=== PATIENT | male | born 1950 | race Caucasian/White ===

== ENCOUNTER 2017-05-03 07:37 | Inpatient (IN) | payer MEDICARE, OTHER ==
[~2017-05-03] VITALS: Ht 165.1 cm; Wt 89.5 kg
[~2017-05-03 07:37] MED LIST: ASPI81 PO; ATOR10TA84 PO; CHOL50004 PO; DICL2100G TP; DICL50TA9 PO
[2017-05-03] MEDS ORDERED: RINGERS SOLUTION,LACTATED 1,000 ML IV ONE ×2 (08:02→08:30)
[2017-05-03] MEDS ORDERED: TRANEXAMIC ACID 1,000 MG in DEXTROSE 5%-WATER 50 ML IV ONE (08:15)
[2017-05-03] MEDS ORDERED: HYDROmorphone 2 MG/ML SYRINGE IVP PRN (08:15)
[2017-05-03] MEDS ORDERED: MEPERIDINE-PF 25 MG/ML SYRINGE IVP PRN (08:15)
[2017-05-03] MEDS ORDERED: FentaNYL CITRATE-PF 100 MCG/2 ML VIAL IVP PRN (08:15)
[2017-05-03] MEDS ORDERED: BUPIVACAINE LIPOSOME/PF 1.3%-13.3MG/ML SUSPENSION 20 ML VIAL INJ ONE (08:15)
[2017-05-03] MEDS ORDERED: ONDANSETRON HCL 4 MG/2 ML VIAL IVP PRN ×2 (08:15→09:30)
[2017-05-03] MEDS ORDERED: PROMETHAZINE HCL 25 MG/ML VIAL IM PRN (08:15)
[2017-05-03] MEDS ORDERED: ZOLPIDEM TARTRATE 5 MG TABLET PO PRN (08:15)
[2017-05-03] MEDS ORDERED: ACETAMINOPHEN 1000 MG/ISO-OSM 100 ML IV ONE (08:45)
[2017-05-03] MEDS ORDERED: CELECOXIB 200 MG CAPSULE ONE (08:46)
[2017-05-03] MEDS: ACETAMINOPHEN 1000 MG/ISO-OSM 100 ML IV SCH ×3 (08:56→21:43)
[2017-05-03] MEDS ORDERED: CELECOXIB 200 MG CAPSULE PO ONE (09:00)
[2017-05-03] MEDS ORDERED: SODIUM CHLORIDE 0.9% 1,000 ML IV SCH (09:24)
[2017-05-03] MEDS ORDERED: SODIUM CL IRRIG SOLN BAG 3,000 ML IRRIG ONE (09:26)
[2017-05-03] MEDS ORDERED: 0.9% SODIUM CHLORIDE 10 ML SYRINGE IVP PRN (09:30)
[2017-05-03] MEDS ORDERED: DiphenhydrAMINE HCL 50 MG/ML VIAL IVP PRN (09:30)
[2017-05-03] MEDS ORDERED: BISACODYL 10 MG RECTAL RECTAL SUPPOSITORY PR PRN (09:30)
[2017-05-03] MEDS ORDERED: BENZOCAINE/MENTHOL LOZENGE [8 LOZENGES/PACKET] PO PRN (09:30)
[2017-05-03] MEDS ORDERED: BUPIVACAINE HCL/PF 0.5% 30 ML VIAL ONE ×2 (09:33→09:40)
[2017-05-03] MEDS ORDERED: SODIUM CHLORIDE 0.9% 50 ML ONE (09:40)
[2017-05-03 13:00] VITALS: BP 135/78
[2017-05-03 16:00] VITALS: BP 136/85
[2017-05-03] MEDS: CeFAZolin 1 GM/DEXTROSE 50 ML IV SCH (16:43)
[2017-05-03] MEDS: HYDROmorphone 2 MG/ML SYRINGE IVP PRN (18:55)
[2017-05-03] MEDS ORDERED: OXYGEN THERAPY IH SCH (20:00)
[2017-05-03 20:44] VITALS: BP 123/72
[2017-05-03] MEDS: DOCUSATE SODIUM 100 MG CAPSULE PO SCH (21:42)
[2017-05-03] MEDS: CELECOXIB 200 MG CAPSULE PO SCH (21:43)
[2017-05-04] VITALS (7 sets, daily range): BP systolic 110–129; BP diastolic 60–77
[2017-05-04] MEDS: CeFAZolin 1 GM/DEXTROSE 50 ML IV SCH (00:17)
[2017-05-04] MEDS: ACETAMINOPHEN 1000 MG/ISO-OSM 100 ML IV SCH ×2 (02:48→09:06)
[2017-05-04 06:05] LABS: BASOPHILS % (AUTO) 0.2 % (0.0-2.0); EOSINOPHILS % (AUTO) 0.8 % (1.0-6.0); HEMATOCRIT 36.8 % (41-53); HEMOGLOBIN 12.6 g/dL (13.5-17.5); LYMPHOCYTES # (AUTO) 1.8 K/uL (1.0-4.8); LYMPHOCYTES % (AUTO) 16.5 % (22.0-44.0); MEAN CORPUSCULAR HEMOGLOBIN 31.5 pg (26.0-34.0); MEAN CORPUSCULAR HGB CONC 34.3 G/dL (31.0-37.0); MEAN CORPUSCULAR VOLUME 92 fL (80-100); MONOCYTES # (AUTO) 1.3 K/uL (0.1-1.0); NEUTROPHILS # (AUTO) 7.5 K/uL (1.8-7.7); NEUTROPHILS % (AUTO) 70.5 % (40.0-70.0); PLATELET COUNT (AUTO) 199 K/uL (150-450); RED BLOOD CELL COUNT(AUTO) 4.01 MIL/uL (4.50-5.90); RED CELL DISTRIBUTION WIDTH 13.5 % (11.5-14.5); WHITE BLOOD COUNT (AUTO) 10.6 K/uL (4.5-11.0)
[2017-05-04 06:42] LABS: ANION GAP 7 mmol/L (8-16); CALCIUM, TOTAL 8.9 mg/dL (8.8-10.5); CARBON DIOXIDE 29 mmol/L (22-29); CHLORIDE 101 mmol/L (98-107); CREATININE 1.05 mg/dL (0.60-1.30); GLOMERULAR FILTR. RATE CALC > 60 mL/min (>60); SODIUM SERUM 137 mmol/L (136-145); UREA NITROGEN, BLOOD 15 mg/dL (7-18)
[2017-05-04] MEDS ORDERED: FentaNYL CITRATE-PF 100 MCG/2 ML VIAL IVP ONE (07:18)
[2017-05-04] MEDS ORDERED: MIDAZOLAM HCL 2 MG/2 ML VIAL IVP ONE (07:18)
[2017-05-04] MEDS: ATORVASTATIN CALCIUM 10 MG TABLET PO SCH (09:05)
[2017-05-04] MEDS: CELECOXIB 200 MG CAPSULE PO SCH ×2 (09:05→21:06)
[2017-05-04] MEDS: DOCUSATE SODIUM 100 MG CAPSULE PO SCH ×2 (09:05→21:06)
[2017-05-04] MEDS ORDERED: RIVAROXABAN 10 MG TABLET PO SCH (17:30)
[2017-05-04] MEDS: OXYGEN THERAPY IH SCH (20:00)
[2017-05-04] MEDS: OxyCODONE HCL/ACETAMINOPHEN 10-325 MG TABLET PO PRN (21:07)
[2017-05-04] MEDS: HYDROmorphone 2 MG/ML SYRINGE IVP PRN (23:47)
[2017-05-04] MEDS: CYCLOBENZAPRINE HCL 10 MG TABLET PO PRN (23:47)
[2017-05-05] MEDS ORDERED: EPHEDrine SULFATE 50 MG/ML VIAL IM ONE (02:00)
[2017-05-05] MEDS ORDERED: PHENYLEPHRINE HCL 10 MG/ML VIAL IVP ONE (02:00)
[2017-05-05] MEDS ORDERED: LIDOCAINE HCL/PF 2% 5 ML VIAL IM ONE (02:00)
[2017-05-05 04:45] VITALS: BP 117/65
[2017-05-05 06:38] LABS: BASOPHILS # (AUTO) 0.01 K/uL (0.00-0.20); BASOPHILS % (AUTO) 0.1 % (0.0-2.0); EOSINOPHILS # (AUTO) 0.23 K/uL (0.00-0.70); EOSINOPHILS % (AUTO) 2.09 % (1.0-6.0); HEMATOCRIT 34.2 % (41-53); HEMOGLOBIN 11.5 g/dL (13.5-17.5); LYMPHOCYTES # (AUTO) 2.4 K/uL (1.0-4.8); MEAN CORPUSCULAR HEMOGLOBIN 31.3 pg (26.0-34.0); MEAN CORPUSCULAR HGB CONC 33.4 G/dL (31.0-37.0); MEAN CORPUSCULAR VOLUME 93 fL (80-100); MONOCYTES # (AUTO) 1.6 K/uL (0.1-1.0); MONOCYTES % (AUTO) 14.4 % (2.0-9.0); NEUTROPHILS % (AUTO) 62.5 % (40.0-70.0); PLATELET COUNT (AUTO) 166 K/uL (150-450); RED BLOOD CELL COUNT(AUTO) 3.66 MIL/uL (4.50-5.90); RED CELL DISTRIBUTION WIDTH 13.7 % (11.5-14.5); WHITE BLOOD COUNT (AUTO) 11.2 K/uL (4.5-11.0)
[2017-05-05 08:00] VITALS: BP 111/62
[2017-05-05] MEDS: DOCUSATE SODIUM 100 MG CAPSULE PO SCH ×2 (09:55→19:57)
[2017-05-05] MEDS: CELECOXIB 200 MG CAPSULE PO SCH ×2 (09:56→19:57)
[2017-05-05] MEDS: ATORVASTATIN CALCIUM 10 MG TABLET PO SCH (09:56)
[2017-05-05 16:23] VITALS: BP 150/79
[2017-05-05 16:43] VITALS: BP 125/62
[2017-05-05] MEDS: CYCLOBENZAPRINE HCL 10 MG TABLET PO PRN (19:57)
[2017-05-05] MEDS: OXYGEN THERAPY IH SCH (20:01)
[2017-05-05 21:00] VITALS: BP 141/80
[2017-05-05] MEDS: OxyCODONE HCL/ACETAMINOPHEN 10-325 MG TABLET PO PRN (21:16)
[2017-05-06 00:09] VITALS: BP 118/61
[2017-05-06 04:48] VITALS: BP_SYST 129; BP_SYST 130; BP_DIAS 69; BP_DIAS 94
[2017-05-06 05:43] LABS: BASOPHILS % (AUTO) 0.4 % (0.0-2.0); EOSINOPHILS % (AUTO) 2.4 % (1.0-6.0); HEMATOCRIT 33.4 % (41-53); HEMOGLOBIN 11.4 g/dL (13.5-17.5); LYMPHOCYTES # (AUTO) 2.7 K/uL (1.0-4.8); LYMPHOCYTES % (AUTO) 25.3 % (22.0-44.0); MEAN CORPUSCULAR HEMOGLOBIN 31.3 pg (26.0-34.0); MEAN CORPUSCULAR VOLUME 92 fL (80-100); MONOCYTES # (AUTO) 1.6 K/uL (0.1-1.0); MONOCYTES % (AUTO) 14.8 % (2.0-9.0); NEUTROPHILS # (AUTO) 6.1 K/uL (1.8-7.7); NEUTROPHILS % (AUTO) 57.1 % (40.0-70.0); PLATELET COUNT (AUTO) 185 K/uL (150-450); RED BLOOD CELL COUNT(AUTO) 3.63 MIL/uL (4.50-5.90); RED CELL DISTRIBUTION WIDTH 13.9 % (11.5-14.5); WHITE BLOOD COUNT (AUTO) 10.7 K/uL (4.5-11.0)
[2017-05-06 08:10] VITALS: BP 126/70
[2017-05-06] MEDS: ATORVASTATIN CALCIUM 10 MG TABLET PO SCH (08:56)
[2017-05-06] MEDS: CELECOXIB 200 MG CAPSULE PO SCH (08:56)
[2017-05-06] MEDS: DOCUSATE SODIUM 100 MG CAPSULE PO SCH (08:56)
[2017-05-06] MEDS: OxyCODONE HCL/ACETAMINOPHEN 10-325 MG TABLET PO PRN (08:57)
[2017-05-06] MEDS ORDERED: ASPIRIN 325 MG TABLET PO SCH (09:00)
[2017-05-06 11:30] VITALS: BP 130/70
[2017-05-06 15:30] VITALS: BP 136/75
== END 2017-05-06 16:11 | DRG 470 ==
LOC: 4E 07:37
PROVIDERS: ADMIT Orthopaedic Surgery; ATTEND Orthopaedic Surgery
PROC: 0SRD0J9 Replacement of Left Knee Joint with Synthetic Substitute, Cemented, Open Approach (ICD-10-PCS; principal; 2017-05-03 10:00)
DX: M17.12 Unilateral primary osteoarthritis, left knee (principal); D64.9 Anemia, unspecified; D72.829 Elevated white blood cell count, unspecified; E78.5 Hyperlipidemia, unspecified
CPT/HCPCS: 87081; 88300; 93005; 97110; 97116; 97161; 97165; 97530; 97535; C9290; G0238; J0131; J0690; J1170; J2250; J2370; J2405; J2550; J3010; J3490; J7050; J7060; J7120